=== PATIENT | female | born 1950 | race Caucasian/White ===

== ENCOUNTER 2021-11-13 03:03 | Inpatient (IN) ==
[2021-11-13] MEDS ORDERED: Lactated Ringers 1000 ml BAG IV.FLUID IV ONE (03:16)
[2021-11-13] MEDS ORDERED: Azithromycin 500 mg/250 ml NS 500 MG/250 ML BAG IVPB ONE (03:16)
[2021-11-13] MEDS ORDERED: cefTRIAXone 1 gm/50 mL D5W 1 GM/50 ML BAG IV ONE (03:16)
[2021-11-13 03:24] LABS: Venous Bicarbonate HCO3 25.4 mmol/L (24-28)
[2021-11-13 03:33] LABS: ABS Lymphocytes 0.2 10^3/ul (1.0-4.8); ABS Monocytes 0.1 10^3/ul (0-0.8); ABS Neutrophils 1.1 10^3/ul (1.5-7.7); Hematocrit 38 % (35-47); Hemoglobin 12.5 g/dL (12.0-16.0); Lymphocyte % 12.7 %; Mean Corpuscular HGB Conc 33 g/dL (31-36); Mean Corpuscular Hemoglobin 31 pg (27-31); Mean Corpuscular Volume 93 fL (80-97); Mean Platelet Volume 7.9 fL (7.4-10.4); Nucleated Red Blood Cells % 0.2; Platelet Count 252 10^3/uL (150-450); Red Blood Count 4.07 10^6 /uL (3.70-4.87); Red Cell Distribution Width 14 % (10-15); White Blood Count 1.4 10^3/uL (3.5-10.8)
[2021-11-13 03:39] LABS: Urine Appearance Clear; Urine Color Yellow
[2021-11-13 03:40] LABS: Activated Partial Thrombo Time 26.2 seconds (26.0-38.0); INR 1.04 (0.89-1.11)
[2021-11-13 03:40] LABS: Urine Bilirubin Negative (Negative); Urine Blood Negative (Negative); Urine Glucose Negative (Negative); Urine Ketones Negative (Negative); Urine Nitrite Negative (Negative); Urine Protein Negative (Negative); Urine Specific Gravity 1.015 (1.005-1.030); Urine Urobilinogen 0.2 (Negative) (Negative); Urine pH 5.5 (5.0-9.0)
[2021-11-13 03:53] LABS: Albumin 3.3 g/dL (3.2-5.2); Albumin/Globulin Ratio 1.3 (1-3); C Reactive Protein 129.41 mg/L (<8.01); Calcium 8.3 mg/dL (8.6-10.3); Globulin 2.5 g/dL (2-4); Potassium 3.5 mmol/L (3.5-5.0); Total Bilirubin 0.6 mg/dL (0.2-1.0); Total Protein 5.8 g/dL (6.4-8.9); eGFR CKD-EPI 44.8 (>60)
[2021-11-13 05:05] LABS: High Sensitivity Troponin 1 Hr 29 pg/mL (<15)
[2021-11-13] MEDS ORDERED: Lactated Ringers 1000 ml BAG 1,000 ML IV ONE (06:02)
[2021-11-13] MEDS: Enoxaparin 40 MG/0.4 ML SYR SUBCUT SCH (06:18)
[2021-11-13] MEDS: Aspirin EC 81 mg TAB.EC (enteric coated) PO SCH (08:40)
[2021-11-13] MEDS: Lactated Ringers 1000 ml BAG 1,000 ML IV SCH (08:57)
[2021-11-13] MEDS ORDERED: Zosyn per Pharmacy NOTE FOLLOW UP SCH (09:00)
[2021-11-13] MEDS ORDERED: Piperacillin/Tazobac ADVAN 3.375 GM in NS 0.9% 100 ml BAG 100 ML IV ONE (09:00)
[2021-11-13] MEDS ORDERED: Hydrocortisone INJ 100 MG/2ML 2 ML VIAL IV ONE (09:00)
[2021-11-13] MEDS ORDERED: Norepinephrine 16MCG/ML BAG NS 4,000 MCG/250 ML BAG IV SCH (09:00)
[2021-11-13 09:05] LABS: Magnesium 1.6 mg/dL (1.9-2.7)
[2021-11-13] MEDS ORDERED: Norepinephrine 16MCG/ML BAGD5W 4,000 MCG/250 ML BAG IV ONE (09:06)
[2021-11-13] MEDS: Norepinephrine 16MCG/ML IVPREMIX 4,000 MCG/250 ML D5W BAG IV SCH (09:08)
[2021-11-13] MEDS ORDERED: Magnesium Sulf 4 GM/100 ML IV 4,000 MG/100 ML BAG IVPB ONE (10:00)
[2021-11-13] MEDS ORDERED: Potassium Phosphate IV 15 MMOLE in NS 0.9% 250 ml 250 ML IVPB ONE (10:00)
[2021-11-13] MEDS: ZOSYN 3.375 GM Q8H per EXTENDED INFUSION IV SCH ×2 (12:23→21:28)
[2021-11-13 15:12] LABS: ABS Lymphocytes 0.3 10^3/ul (1.0-4.8); ABS Monocytes 0.5 10^3/ul (0-0.8); ABS Neutrophils 7.4 10^3/ul (1.5-7.7); Eosinophil % 0.1 %; Hematocrit 34 % (35-47); Hemoglobin 11.4 g/dL (12.0-16.0); Lymphocyte % 3.5 %; Mean Corpuscular HGB Conc 33 g/dL (31-36); Mean Corpuscular Hemoglobin 31 pg (27-31); Mean Corpuscular Volume 92 fL (80-97); Mean Platelet Volume 7.7 fL (7.4-10.4); Platelet Count 226 10^3/uL (150-450); Red Blood Count 3.72 10^6 /uL (3.70-4.87); Red Cell Distribution Width 13 % (10-15); White Blood Count 8.2 10^3/uL (3.5-10.8)
[2021-11-13 16:07] LABS: Calcium 7.7 mg/dL (8.6-10.3); Potassium 4.1 mmol/L (3.5-5.0); eGFR CKD-EPI 59.5 (>60)
[2021-11-13] MEDS: Hydrocortisone INJ 100 MG/2ML 2 ML VIAL IV SCH (17:12)
[2021-11-13 18:32] LABS: Magnesium 2.9 mg/dL (1.9-2.7); Phosphorus 3.9 mg/dL (2.5-5.0)
[2021-11-13] MEDS: CMC: Pravastatin 20 mg TAB (NF) PO SCH (19:51)
[2021-11-14] MEDS: Hydrocortisone INJ 100 MG/2ML 2 ML VIAL IV SCH ×3 (00:40→16:32)
[2021-11-14] MEDS: Lactated Ringers 1000 ml BAG 1,000 ML IV SCH (00:48)
[2021-11-14] MEDS: ZOSYN 3.375 GM Q8H per EXTENDED INFUSION IV SCH ×3 (04:57→20:35)
[2021-11-14] MEDS: Azithromycin 500 mg/250 ml NS 500 MG/250 ML BAG IVPB SCH (04:59)
[2021-11-14 05:21] LABS: ABS Lymphocytes 0.3 10^3/ul (1.0-4.8); ABS Monocytes 0.5 10^3/ul (0-0.8); ABS Neutrophils 6.6 10^3/ul (1.5-7.7); Hematocrit 25 % (35-47); Lymphocyte % 3.7 %; Mean Corpuscular HGB Conc 36 g/dL (31-36); Mean Corpuscular Hemoglobin 33 pg (27-31); Mean Corpuscular Volume 93 fL (80-97); Mean Platelet Volume 7.3 fL (7.4-10.4); Platelet Count 180 10^3/uL (150-450); Red Blood Count 2.71 10^6 /uL (3.70-4.87); Red Cell Distribution Width 13 % (10-15); White Blood Count 7.3 10^3/uL (3.5-10.8)
[2021-11-14] MEDS ORDERED: cefTRIAXone 1 gm/50 mL D5W 1 GM/50 ML BAG IV SCH (05:30)
[2021-11-14 05:43] LABS: Magnesium 1.9 mg/dL (1.9-2.7); Phosphorus 2.5 mg/dL (2.5-5.0); Potassium 3.1 mmol/L (3.5-5.0); eGFR CKD-EPI 94.1 (>60)
[2021-11-14 05:46] LABS: Calcium 5.8 mg/dL (8.6-10.3)
[2021-11-14] MEDS: Enoxaparin 40 MG/0.4 ML SYR SUBCUT SCH (06:10)
[2021-11-14] MEDS: Aspirin EC 81 mg TAB.EC (enteric coated) PO SCH (08:35)
[2021-11-14 09:09] LABS: ABS Lymphocytes 0.4 10^3/ul (1.0-4.8); ABS Monocytes 0.6 10^3/ul (0-0.8); ABS Neutrophils 9.4 10^3/ul (1.5-7.7); Hematocrit 32 % (35-47); Hemoglobin 11.2 g/dL (12.0-16.0); Mean Corpuscular HGB Conc 35 g/dL (31-36); Mean Corpuscular Hemoglobin 33 pg (27-31); Mean Corpuscular Volume 93 fL (80-97); Mean Platelet Volume 8.3 fL (7.4-10.4); Platelet Count 222 10^3/uL (150-450); Red Blood Count 3.45 10^6 /uL (3.70-4.87); Red Cell Distribution Width 13 % (10-15); White Blood Count 10.4 10^3/uL (3.5-10.8)
[2021-11-14 09:56] LABS: Calcium 7.5 mg/dL (8.6-10.3); Potassium 3.4 mmol/L (3.5-5.0); eGFR CKD-EPI 81.2 (>60)
[2021-11-14] MEDS: Norepinephrine 16MCG/ML IVPREMIX 4,000 MCG/250 ML D5W BAG IV SCH (11:40)
[2021-11-14] MEDS: KCL 20 MEQ/100 ML IVPREMIX 20 MEQ/100 ML BAG IV SCH ×2 (11:43→14:17)
[2021-11-14] MEDS: CMC: Pravastatin 20 mg TAB (NF) PO SCH (20:46)
[2021-11-15] MEDS: Hydrocortisone INJ 100 MG/2ML 2 ML VIAL IV SCH ×4 (00:05→18:59)
[2021-11-15] MEDS: ZOSYN 3.375 GM Q8H per EXTENDED INFUSION IV SCH ×3 (04:59→21:02)
[2021-11-15 05:14] LABS: ABS Lymphocytes 0.5 10^3/ul (1.0-4.8); ABS Monocytes 0.6 10^3/ul (0-0.8); ABS Neutrophils 9.7 10^3/ul (1.5-7.7); Hematocrit 31 % (35-47); Hemoglobin 10.9 g/dL (12.0-16.0); Lymphocyte % 4.5 %; Mean Corpuscular HGB Conc 36 g/dL (31-36); Mean Corpuscular Hemoglobin 33 pg (27-31); Mean Corpuscular Volume 92 fL (80-97); Mean Platelet Volume 7.8 fL (7.4-10.4); Platelet Count 255 10^3/uL (150-450); Red Blood Count 3.32 10^6 /uL (3.70-4.87); Red Cell Distribution Width 13 % (10-15); White Blood Count 10.9 10^3/uL (3.5-10.8)
[2021-11-15] MEDS: Azithromycin 500 mg/250 ml NS 500 MG/250 ML BAG IVPB SCH (05:15)
[2021-11-15] MEDS: Enoxaparin 40 MG/0.4 ML SYR SUBCUT SCH (05:26)
[2021-11-15 05:48] LABS: Calcium 7.4 mg/dL (8.6-10.3); Magnesium 2.4 mg/dL (1.9-2.7); Phosphorus 2.2 mg/dL (2.5-5.0); Potassium 4.1 mmol/L (3.5-5.0); eGFR CKD-EPI 77.6 (>60)
[2021-11-15] MEDS: Aspirin EC 81 mg TAB.EC (enteric coated) PO SCH (09:15)
[2021-11-15] MEDS ORDERED: Potassium & Sodium Phos 250 mg = 1 PACKET PO ONE (10:33)
[2021-11-15] MEDS: CMC: Pravastatin 20 mg TAB (NF) PO SCH (20:58)
[2021-11-16] MEDS: Hydrocortisone INJ 100 MG/2ML 2 ML VIAL IV SCH ×4 (00:44→21:22)
[2021-11-16] MEDS: Enoxaparin 40 MG/0.4 ML SYR SUBCUT SCH (05:01)
[2021-11-16] MEDS: ZOSYN 3.375 GM Q8H per EXTENDED INFUSION IV SCH ×3 (05:03→21:21)
[2021-11-16 05:16] LABS: Hematocrit 35 % (35-47); Hemoglobin 12.1 g/dL (12.0-16.0); Mean Corpuscular HGB Conc 35 g/dL (31-36); Mean Corpuscular Hemoglobin 32 pg (27-31); Mean Corpuscular Volume 92 fL (80-97); Mean Platelet Volume 7.9 fL (7.4-10.4); Platelet Count 302 10^3/uL (150-450); Red Blood Count 3.78 10^6 /uL (3.70-4.87); Red Cell Distribution Width 14 % (10-15)
[2021-11-16 06:14] LABS: Calcium 7.6 mg/dL (8.6-10.3); Magnesium 2.4 mg/dL (1.9-2.7); Potassium 3.8 mmol/L (3.5-5.0); eGFR CKD-EPI 93.1 (>60)
[2021-11-16] MEDS ORDERED: Potassium Chlor 20 meq TAB.ER PO ONE (06:25)
[2021-11-16] MEDS ORDERED: Potassium Chloride LIQUID 20 MEQ/15 ML LIQUID PO ONE (07:26)
[2021-11-16 08:30] LABS: ABS Lymphocytes 0.7 10^3/ul (1.0-4.8); ABS Monocytes 0.7 10^3/ul (0-0.8); ABS Neutrophils 8.6 10^3/ul (1.5-7.7); Lymphocyte % 6.7 %
[2021-11-16] MEDS: Aspirin EC 81 mg TAB.EC (enteric coated) PO SCH (09:26)
[2021-11-16] MEDS ORDERED: Furosemide 20 mg/2 ml IV VIAL IV SLOW PU ONE (09:52)
[2021-11-16] MEDS: Ondansetron 4 mg VIAL 2 MG/ML 2 ml VIAL IV PRN (14:41)
[2021-11-16] MEDS: CMCS: Pravastatin 20 mg TAB (NF) PO SCH (21:23)
[2021-11-16] MEDS: guaiFENesin 100 mg/5 ml LIQ unit dose cup PO PRN (21:23)
[2021-11-17] MEDS: ZOSYN 3.375 GM Q8H per EXTENDED INFUSION IV SCH ×3 (05:13→21:22)
[2021-11-17] MEDS: Enoxaparin 40 MG/0.4 ML SYR SUBCUT SCH (05:49)
[2021-11-17 05:51] LABS: Hematocrit 36 % (35-47); Hemoglobin 11.9 g/dL (12.0-16.0); Mean Corpuscular HGB Conc 33 g/dL (31-36); Mean Corpuscular Hemoglobin 30 pg (27-31); Mean Corpuscular Volume 92 fL (80-97); Mean Platelet Volume 7.5 fL (7.4-10.4); Platelet Count 327 10^3/uL (150-450); Red Blood Count 3.93 10^6 /uL (3.70-4.87); Red Cell Distribution Width 14 % (10-15); White Blood Count 8.6 10^3/uL (3.5-10.8)
[2021-11-17 05:57] LABS: ABS Lymphocytes 1.1 10^3/ul (1.0-4.8); ABS Neutrophils 6.5 10^3/ul (1.5-7.7); Lymphocyte % 12.3 %; Nucleated Red Blood Cells % 0.1
[2021-11-17 06:31] LABS: Calcium 7.7 mg/dL (8.6-10.3); Magnesium 2.2 mg/dL (1.9-2.7); Potassium 3.8 mmol/L (3.5-5.0); eGFR CKD-EPI 93.7 (>60)
[2021-11-17] MEDS: Aspirin EC 81 mg TAB.EC (enteric coated) PO SCH (09:27)
[2021-11-17] MEDS: CMCS: Pravastatin 20 mg TAB (NF) PO SCH (21:25)
[2021-11-17] MEDS: guaiFENesin 100 mg/5 ml LIQ unit dose cup PO PRN (21:26)
[2021-11-18] MEDS: guaiFENesin 100 mg/5 ml LIQ unit dose cup PO PRN (05:36)
[2021-11-18] MEDS: ZOSYN 3.375 GM Q8H per EXTENDED INFUSION IV SCH ×3 (05:36→20:40)
[2021-11-18] MEDS: Enoxaparin 40 MG/0.4 ML SYR SUBCUT SCH (05:36)
[2021-11-18 06:08] LABS: Hematocrit 35 % (35-47); Hemoglobin 12.1 g/dL (12.0-16.0); Mean Corpuscular HGB Conc 35 g/dL (31-36); Mean Corpuscular Hemoglobin 32 pg (27-31); Mean Corpuscular Volume 92 fL (80-97); Mean Platelet Volume 7.5 fL (7.4-10.4); Platelet Count 349 10^3/uL (150-450); Red Cell Distribution Width 14 % (10-15); White Blood Count 9.6 10^3/uL (3.5-10.8)
[2021-11-18 06:35] LABS: ABS Eosinophils 0.1 10^3/ul (0-0.6); ABS Lymphocytes 1.5 10^3/ul (1.0-4.8); ABS Monocytes 1.2 10^3/ul (0-0.8); ABS Neutrophils 6.8 10^3/ul (1.5-7.7); Eosinophil % 1.2 %; Nucleated Red Blood Cells % 0.1
[2021-11-18 06:42] LABS: Calcium 7.8 mg/dL (8.6-10.3); Magnesium 2.3 mg/dL (1.9-2.7); Potassium 3.9 mmol/L (3.5-5.0); eGFR CKD-EPI 93.4 (>60)
[2021-11-18] MEDS: Aspirin EC 81 mg TAB.EC (enteric coated) PO SCH (08:38)
[2021-11-18] MEDS: CMCS: Pravastatin 20 mg TAB (NF) PO SCH (20:08)
[2021-11-19] MEDS: Enoxaparin 40 MG/0.4 ML SYR SUBCUT SCH (05:16)
[2021-11-19] MEDS: ZOSYN 3.375 GM Q8H per EXTENDED INFUSION IV SCH ×3 (05:16→20:31)
[2021-11-19] MEDS: Aspirin EC 81 mg TAB.EC (enteric coated) PO SCH (08:51)
[2021-11-19] MEDS: Ondansetron 4 mg VIAL 2 MG/ML 2 ml VIAL IV PRN (13:26)
[2021-11-19] MEDS: CMCS: Pravastatin 20 mg TAB (NF) PO SCH (20:28)
[2021-11-20 05:41] LABS: Hematocrit 34 % (35-47); Hemoglobin 11.1 g/dL (12.0-16.0); Mean Corpuscular HGB Conc 33 g/dL (31-36); Mean Corpuscular Hemoglobin 30 pg (27-31); Mean Corpuscular Volume 93 fL (80-97); Platelet Count 396 10^3/uL (150-450); Red Blood Count 3.67 10^6 /uL (3.70-4.87); Red Cell Distribution Width 14 % (10-15)
[2021-11-20 05:44] LABS: ABS Eosinophils 0.2 10^3/ul (0-0.6); ABS Lymphocytes 1.1 10^3/ul (1.0-4.8); ABS Monocytes 0.7 10^3/ul (0-0.8); Eosinophil % 2.2 %; Lymphocyte % 15.8 %; Nucleated Red Blood Cells % 0.1
[2021-11-20] MEDS: Enoxaparin 40 MG/0.4 ML SYR SUBCUT SCH (05:53)
[2021-11-20 06:16] LABS: Albumin 2.7 g/dL (3.2-5.2); Albumin/Globulin Ratio 1.3 (1-3); Globulin 2.1 g/dL (2-4); Potassium 4.4 mmol/L (3.5-5.0); Total Bilirubin 0.2 mg/dL (0.2-1.0); Total Protein 4.8 g/dL (6.4-8.9); eGFR CKD-EPI 82.4 (>60)
[2021-11-20] MEDS: Aspirin EC 81 mg TAB.EC (enteric coated) PO SCH (09:34)
[2021-11-20 11:04] VITALS: BP 125/69
[2021-11-20 13:02] LABS: Rapid COVID-19 Molecular Undetected (Undetected)
== END 2021-11-20 14:35 | DRG 177 ==
LOC: ED 03:03 → SUATTDRO 05:29 → EDHOLD 05:29 → ICU 07:24 → MED 11-18 16:13
PROVIDERS: ADMIT Internal Medicine; ATTEND Internal Medicine

== ENCOUNTER 2023-07-03 15:43 | Inpatient (IN) ==
[2023-07-03] MEDS: Ondansetron 4 mg VIAL 2 MG/ML 2 ml VIAL IV ONE ×2 (16:12→19:47)
[2023-07-03] MEDS: Lactated Ringers 1000 ml BAG 1,000 ML IV ONE (16:12)
[2023-07-03 17:01] LABS: ABS Lymphocytes 0.5 10^3/uL (1.0-4.8); ABS Monocytes 0.7 10^3/uL (0.0-0.9); ABS Neutrophils 7.3 10^3/uL (1.5-7.6); Eosinophil % 0.1 %; Hematocrit 37.6 % (35-45); Hemoglobin 12.8 g/dL (11.5-14.3); Lymphocyte % 6.2 %; Mean Corpuscular Hemoglobin 31.7 pg (27-33); Mean Corpuscular Volume 93.4 fL (80-97); Mean Platelet Volume 8.8 fL (7.5-11.2); Platelet Count 262 10^3/uL (150-450); Red Blood Count 4.02 10^6/uL (3.63-4.92); White Blood Count 8.6 10^3/uL (3.8-11.8)
[2023-07-03 17:53] LABS: Albumin 3.8 g/dL (3.2-5.2); Albumin/Globulin Ratio 1.5 (1-3); CRP High Sensitivity 1.44 mg/L (<2.00); Calcium 9.2 mg/dL (8.6-10.3); Creatinine, Serum 1.05 mg/dL (0.51-0.95); Globulin 2.5 g/dL (2-4); Potassium 4.1 mmol/L (3.5-5.0); Total Bilirubin 0.3 mg/dL (0.2-1.0); Total Protein 6.3 g/dL (6.4-8.9); eGFR CKD-EPI 56.1 (>60)
[2023-07-03] MEDS: Iodixanol (CONTRAST) 320 MG/ML 100 ML SDV IV ONE (18:51)
[2023-07-03] MEDS: D5LR 1000 ml BAG 1,000 ML IV SCH (21:59)
[2023-07-03] MEDS: Enoxaparin 40 MG/0.4 ML SYR SUBCUT SCH (21:59)
[2023-07-03] MEDS ORDERED: Lorazepam PYXIS KEY PRN (23:57)
[2023-07-04] MEDS: Ondansetron 4 mg VIAL 2 MG/ML 2 ml VIAL IV PRN (00:25)
[2023-07-04] MEDS: LORazepam 2 mg VIAL 1 ml IV PUSH ONE (00:26)
[2023-07-04] MEDS: ACETAMINOPHEN IV ONE (00:39)
[2023-07-04] MEDS ORDERED: LORazepam 2 mg VIAL 1 ml IV PUSH PRN (01:41)
[2023-07-04] MEDS ORDERED: Lorazepam PYXIS KEY PRN (01:41)
[2023-07-04] MEDS: Morphine 4 MG/ML VIAL (1 ml) IV ONE (02:25)
[2023-07-04 06:10] LABS: Magnesium 1.8 mg/dL (1.9-2.7)
[2023-07-04] MEDS: Lactated Ringers 1000 ml BAG 1,000 ML IV SCH (10:36)
[2023-07-04] MEDS: Acetaminophen IV 1 GM/100ML 880 MG/88 ML BAG IV ONE (11:35)
[2023-07-04] MEDS: Senna TAB 8.6 mg TAB PO PRN (22:29)
[2023-07-05 05:39] LABS: ABS Eosinophils 0.1 10^3/uL (0.0-0.5); ABS Monocytes 0.9 10^3/uL (0.0-0.9); ABS Neutrophils 4.1 10^3/uL (1.5-7.6); Eosinophil % 2.2 %; Hematocrit 32.4 % (35-45); Lymphocyte % 16.6 %; Mean Corpuscular Hemoglobin 31.7 pg (27-33); Mean Corpuscular Hgb Conc 33.9 g/dL (31-36); Mean Corpuscular Volume 93.6 fL (80-97); Platelet Count 215 10^3/uL (150-450); Red Blood Count 3.46 10^6/uL (3.63-4.92); Red Cell Distribution Width 13.6 % (12-17); White Blood Count 6.2 10^3/uL (3.8-11.8)
[2023-07-05 05:56] LABS: Albumin 3.1 g/dL (3.2-5.2); Albumin/Globulin Ratio 1.6 (1-3); Calcium 8.5 mg/dL (8.6-10.3); Creatinine, Serum 0.78 mg/dL (0.51-0.95); Globulin 1.9 g/dL (2-4); Magnesium 1.7 mg/dL (1.9-2.7); Total Bilirubin 0.4 mg/dL (0.2-1.0); eGFR CKD-EPI 80.1 (>60)
[2023-07-05] MEDS: Polyethylene Glycol 3350 17 GM PACKET G TUBE ONE (10:14)
[2023-07-05] MEDS: Cholecalciferol (VIT D3) 1,000 unit TAB FEED TUBE SCH (10:15)
[2023-07-05] MEDS: Lansoprazole SUSP ORALSYR 3 MG/ML FEED TUBE SCH (12:51)
[2023-07-05] MEDS ORDERED: ceFAZolin 1 GM ADVAN 1 GM in NS 0.9% 50 ML 50 ML IVPB SCH (15:00)
[2023-07-05] MEDS: ceFAZolin 1 GM in Dextrose 1 GM/50 ML BAG IVPB SCH (17:34)
[2023-07-06 08:05] LABS: Albumin 3.2 g/dL (3.2-5.2); Albumin/Globulin Ratio 1.4 (1-3); Calcium 8.3 mg/dL (8.6-10.3); Creatinine, Serum 0.77 mg/dL (0.51-0.95); Globulin 2.3 g/dL (2-4); Magnesium 1.7 mg/dL (1.9-2.7); Total Bilirubin 0.3 mg/dL (0.2-1.0); Total Protein 5.5 g/dL (6.4-8.9); eGFR CKD-EPI 81.4 (>60)
[2023-07-06] MEDS: Benzocaine/Menthol LOZ PO PRN (15:19)
[2023-07-07 13:35] VITALS: BP 133/65
[2023-07-07] MEDS: Magnesium Sulfate 2 gm BAG 2 GM/50 ML BAG IVPB ONE (13:45)
== END 2023-07-07 17:00 | disposition home or self-care (01) | DRG 393 ==
LOC: ED 15:43 → EDHOLD 15:43 → INTOOBSV 21:25 → SUATTDRO 21:25 → OBSVTOIN 21:25 → MED 07-04 07:41
PROVIDERS: ADMIT Student in an Organized Health Care Education/Training Program; ATTEND Internal Medicine

== ENCOUNTER 2023-07-08 17:23 | Observation (INO) ==
[2023-07-08] MEDS: NS 0.9% 1000 ml BAG 1,000 ML IV ONE (22:10)
[2023-07-08 22:29] LABS: ABS Eosinophils 0.1 10^3/uL (0.0-0.5); ABS Lymphocytes 1.3 10^3/uL (1.0-4.8); ABS Neutrophils 4.3 10^3/uL (1.5-7.6); Eosinophil % 2.1 %; Hematocrit 36.8 % (35-45); Hemoglobin 12.4 g/dL (11.5-14.3); Lymphocyte % 19.8 %; Mean Corpuscular Hemoglobin 31.9 pg (27-33); Mean Corpuscular Hgb Conc 33.7 g/dL (31-36); Mean Corpuscular Volume 94.5 fL (80-97); Mean Platelet Volume 8.2 fL (7.5-11.2); Platelet Count 361 10^3/uL (150-450); Red Blood Count 3.89 10^6/uL (3.63-4.92); Red Cell Distribution Width 14.1 % (12-17); White Blood Count 6.8 10^3/uL (3.8-11.8)
[2023-07-08] MEDS: NS 0.9% 1000 ml BAG 1,000 ML IV SCH (23:06)
[2023-07-08 23:14] LABS: ALT 11 U/L (7-52); AST 17 U/L (13-39); Albumin 3.9 g/dL (3.2-5.2); Albumin/Globulin Ratio 1.3 (1-3); Alkaline Phosphatase 97 U/L (35-149); Anion Gap 8 mmol/L (2-16); Blood Urea Nitrogen 12 mg/dL (6-24); CO2 Carbon Dioxide 31 mmol/L (22-32); Calcium 9.4 mg/dL (8.6-10.3); Chloride 96 mmol/L (101-111); Globulin 3.1 g/dL (2-4); Glucose 84 mg/dL (70-100); Lipase < 10 U/L (11.0-82.0); Magnesium 1.9 mg/dL (1.9-2.7); Phosphorus 3.6 mg/dL (2.5-5.0); Potassium 3.9 mmol/L (3.5-5.0); Sodium 135 mmol/L (135-145); Total Bilirubin 0.4 mg/dL (0.2-1.0); eGFR CKD-EPI 77.8 (>60)
[2023-07-09 00:27] LABS: Urine Appearance Clear; Urine Bilirubin Negative (Negative); Urine Blood Negative (Negative); Urine Color Colorless; Urine Glucose Negative (Negative); Urine Ketones Trace (Negative); Urine Nitrite Negative (Negative); Urine Protein Negative (Negative); Urine Specific Gravity 1.004 (1.002-1.030); Urine Urobilinogen Negative (Negative); Urine pH 7.5 (5.0-8.0)
[2023-07-09] MEDS: Levothyroxine 100 MCG/5 ML VIAL IV SCH (05:27)
[2023-07-09 05:28] LABS: ABS Eosinophils 0.1 10^3/uL (0.0-0.5); ABS Lymphocytes 0.8 10^3/uL (1.0-4.8); ABS Monocytes 0.8 10^3/uL (0.0-0.9); ABS Neutrophils 2.2 10^3/uL (1.5-7.6); ABS Nucleated RBC 0.01 10^3/ul; Eosinophil % 3.6 %; Hematocrit 33.2 % (35-45); Hemoglobin 11.3 g/dL (11.5-14.3); Lymphocyte % 20.5 %; Mean Corpuscular Hemoglobin 31.9 pg (27-33); Mean Corpuscular Hgb Conc 34.1 g/dL (31-36); Mean Corpuscular Volume 93.6 fL (80-97); Mean Platelet Volume 7.9 fL (7.5-11.2); Nucleated Red Blood Cells % 0.2 %/100WBC (0.0-0.8); Platelet Count 299 10^3/uL (150-450); Red Blood Count 3.54 10^6/uL (3.63-4.92); Red Cell Distribution Width 13.6 % (12-17)
[2023-07-09 05:42] LABS: Activated Partial Thrombo Time 32.1 seconds (26.0-38.0); INR 1.05 (0.83-1.13)
[2023-07-09] MEDS: Acetaminophen IV 1 GM/100ML 1,000 MG/100 ML BAG IV ONE (05:44)
[2023-07-09 06:01] LABS: Calcium 8.5 mg/dL (8.6-10.3); Creatinine, Serum 0.66 mg/dL (0.51-0.95); Magnesium 1.7 mg/dL (1.9-2.7); Potassium 3.9 mmol/L (3.5-5.0); eGFR CKD-EPI 92.6 (>60)
[2023-07-09] MEDS ORDERED: Morphine 2 MG/ML SYRINGE IV PRN (07:35)
[2023-07-09] MEDS: Magnesium Sulfate 2 gm BAG 2 GM/50 ML BAG IVPB ONE (07:36)
[2023-07-09] MEDS: Pantoprazole VIAL 40 MG VIAL IV SCH (08:35)
[2023-07-09] MEDS: diazePAM INJ CARPUJECT 5 MG/ML SYRINGE IV PRN (08:44)
[2023-07-09] MEDS: Magnesium Sulfate IV 1GM/100ML 1 GM/100 ML BAG IV ONE (09:30)
[2023-07-09] MEDS ORDERED: Acetaminophen IV 1 GM/100ML 1,000 MG/100 ML BAG IV SCH (11:00)
[2023-07-09] MEDS: Ondansetron 4 mg VIAL 2 MG/ML 2 ml VIAL IV PRN (14:00)
[2023-07-09] MEDS: Metoclopramide 5 MG/ML VIAL (10 mg) IV SLOW PU ONE (18:39)
[2023-07-10 13:43] VITALS: BP 148/78
== END 2023-07-10 18:15 | disposition home or self-care (01) ==
LOC: ED 17:23 → EDHOLD 17:23 → SUATTDRO 22:34 → EDHOLD 07-09 02:49 → MED 07-09 03:03
PROVIDERS: ADMIT Internal Medicine; ATTEND Internal Medicine